=== PATIENT | male | born 2000 | race Caucasian/White ===

== ENCOUNTER 2020-07-12 16:36 | Emergency (ER) | payer OTHER ==
[~2020-07-12] VITALS: Ht 170.2 cm; Wt 83.9 kg
[2020-07-12] MEDS ORDERED: DICLOFENAC SODI75 MG PO (19:18)
[2020-07-12] MEDS ORDERED: NORFLEX100MG PO (19:18)
== END 2020-07-12 19:22 | disposition home or self-care (01) ==
LOC: ER 16:36
DX: S13.4XXA Sprain of ligaments of cervical spine, initial encounter (principal); S30.0XXA Contusion of lower back and pelvis, initial encounter; V49.9XXA Car occupant (driver) (passenger) injured in unspecified traffic accident, initial encounter; Y93.89 Activity, other specified; Y92.488 Other paved roadways as the place of occurrence of the external cause; Y99.8 Other external cause status

== ENCOUNTER 2021-06-28 17:33 | Emergency (ER) | payer OTHER ==
[~2021-06-28] VITALS: Ht 170.2 cm; Wt 77.1 kg
[~2021-06-28 17:33] MED LIST: DICLOFENAC SODI75 MG PO; NORFLEX100MG PO
== END 2021-06-28 22:42 | disposition home or self-care (01) ==
LOC: ER 17:33
DX: J10.1 Influenza due to other identified influenza virus with other respiratory manifestations (principal)